=== PATIENT | male | born 1990 | race Caucasian/White ===

== ENCOUNTER 2017-12-29 15:29 | Emergency (ER) | payer MEDICAID ==
[2017-12-29 16:12] LABS: PLATELET COUNT 314 10^3/uL (150-400)
--- NOTE | 2017-12-29 16:13 | EDPHY ---
H & P Stated Complaint: M1 - Medical/Surgical History Hx Asthma: No Hx Chronic Respiratory Disease: No Hx Diabetes: No Hx Cardiac Disease: No Hx Renal Disease: No Hx Cirrhosis: No Hx Alcoholism: No Hx HIV/AIDS: No Hx Splenectomy or Spleen Trauma: No Other PMH: depression, denies others - Social History Smoking Status: Never smoked Alcohol Use: Heavy Time Seen by Provider: 12/29/17 15:34 HPI/ROS: CHIEF COMPLAINT: M1, alcohol intoxication HISTORY OF PRESENT ILLNESS: 27-year-old male with depression presents with alcohol intoxication. Today is the 1 year anniversary of his mother's suicide. He was quite depressed when he woke up this morning and began drinking an excessive amount of alcohol. Just prior to arrival, he became agitated and called the police because people were talking in his front yard. On police arrival, the patient was agitated and appeared to have visual hallucinations. They put him on an M1 hold. Denies SI/HI. REVIEW OF SYSTEMS: complete 10 point ROS negative except at noted in the HPI (Jayleen Garnett) - Physical Exam Exam: General Appearance: Alert, uncooperative, angry, appears intoxicated Eyes: Pupils equal and round, no conjunctival pallor or injection ENT, Mouth: Mucous membranes moist Neck: Normal inspection Respiratory: Lungs are clear to auscultation Cardiovascular: Regular rate and rhythm Gastrointestinal: Abdomen is soft and nontender Neurological: A&O, nonfocal exam Skin: Warm and dry Extremities: Normal inspection Psychiatric: Fluctuating affect (Jayleen Garnett) Constitutional: Initial Vital Signs Temperature (C) 36.6 C 12/29/17 15:51 Heart Rate 106 H 12/29/17 15:51 Respiratory Rate 18 12/29/17 15:51 Blood Pressure 166/78 H 12/29/17 15:51 O2 Sat (%) 94 12/29/17 15:51 O2 Delivery Mode Room Air O2 (L/minute) 36.9 Allergies/Adverse Reactions: nut - unspecified Allergy (Verified 12/29/17 15:51) Home Medications: Medication Instructions Recorded Gabapentin 12/29/17 Lexapro 12/29/17 Medical Decision Making ED Course/Re-evaluation: 1630: Pt quite agitated, Ativan 1mg orally given. 1705: Pt in argument with patient in adjacent room, uncooperative. Haldol 5mg IM given. (Jayleen Garnett) 0630: I did go and evaluate the patient he is now sober however appears to be going through withdrawal, he is not tachycardic however he is tremulous and sweaty, and IV will be established receive IV fluids and additionally 1 mg IV Ativan and placed on CIWA. Continue closely monitor. He still needs mental evaluation. Signed over at shift change to Dr. Guillaume. (Jacinto Lopez) Other Provider: Care assumed at 6:45 a.m. With plan for evaluation of this patient arrived depressed with suicidal ideation and alcohol intoxication. At 5:15 a.m. Breathalyzer is 0. 906: Patient had mental health evaluation and is the recommendation of the collection systems consultant and Dr. Lobito Sargent that the patient be discharged to the care of his father at noon, and the mental health hold is lifted by the home service consultant psychiatrist. (Jace Guillaume) - Data Points Laboratory Results: Laboratory Results 12/29/17 15:42 12/29/17 15:42 Medications Given: Discontinued Medications Haloperidol Lactate (Haldol Injection) 5 mg IM ONCE ONE Stop: 12/29/17 17:09 Last Admin: 12/29/17 17:10 Dose: 5 mg Sodium Chloride (Ns) 1,000 mls @ 0 mls/hr IV ONCE ONE PRN Reason: Wide Open Stop: 12/30/17 06:21 Last Admin: 12/30/17 06:26 Dose: 1,000 mls Lorazepam (Ativan) 1 mg PO EDNOW ONE Stop: 12/29/17 16:31 Last Admin: 12/29/17 16:37 Dose: 1 mg Lorazepam (Ativan Injection) 1 mg IVP EDNOW ONE Stop: 12/30/17 06:22 Last Admin: 12/30/17 06:22 Dose: 1 mg Departure - Departure Disposition: Home, Routine, Self-Care Clinical Impression: Suicidal ideation Alcoholic intoxication Qualifiers: Complication of substance-induced condition: uncomplicated Qualified Code(s): F10.920 - Alcohol use, unspecified with intoxication, uncomplicated Condition: Good Instructions: Alcohol Intoxication (ED), Suicide Prevention (ED) Referrals: [facility],. [Clinic] - As per Instructions
[2017-12-29] MEDS ORDERED: LORazepam 1 MG TAB PO ONE (16:30)
[2017-12-29] MEDS ORDERED: HALOPERIDOL LACT 5 MG/ML INJ ONE (16:45)
[2017-12-29] MEDS ORDERED: HALOPERIDOL LACT 5 MG/ML INJ IM ONE (17:08)
[2017-12-30] MEDS ORDERED: NS 1,000 ML IV ONE (06:20)
[2017-12-30] MEDS ORDERED: LORazepam 2 MG/ML INJ IVP ONE (06:21)
[2017-12-30] MEDS ORDERED: LORazepam 2 MG/ML INJ ONE (06:21)
[2017-12-30] MEDS ORDERED: chlordiazePOXIDE 25 MG CAP PO ONE (10:39)
[2017-12-30 11:02] VITALS: BP 124/78
--- NOTE | 2017-12-30 12:44 | ASMTTLCEVL ---
TLC Evaluation - Basic Information Evaluation Start Date and 12/30/2017 06:15 AM Time Hospital Status Answers: M1 Hold 72-hr M1 Hold Start Date 12/29/2017 03:00 PM and Time Patient statement Notes: I spoke with an officer about ongoing problems, so they called for an ambulance and brought me here. I wasnt feeling suicidal last night and do not feel suicidal now. I can ensure my own safety. Cookie been on a 6-day alcohol pope, drinking continuously throughout each day. My roommate who had been staying with me the past month decided to leave on Wednesday. Narrative Notes: Pt is a 27 yo, single, not employed, male, with past history of alcohol use disorder, severe; anxiety disorder NOS; and depression, moderate, brought to [facility] ED last night by [employer] on M1 hold which noted: Respondent flagged down [officer] with no shirt or shoes on. Respondent was telling illogical story about man outside his apartment that ran off when he spoke to them. Respondent stated mind was in bad place. Respondent would alternate between rapid illogical statements and clear thoughts. When asked if he wanted to go to hospital, he said yes. Respondent not in state of mind to care for himself. BAL upon arrival was .395 at 1542 hrs, UDS results were negative for all tested substances. Pt was agitated initially in the ED and was administered Ativan 1 mg po at 1637 hrs and Haldol 5 mg IM at 1710 hrs. He was also given Ativan 1 mg IVP at 0637 for diaphoresis and tremors. Pt reported that his mother committed suicide by hanging about a year ago. She had left wishes for pt to seek grief counseling, which pt did and started seeing psychiatrist, Dionicio Ferrara MD who then also referred pt to a counselor named Yani Lenz. Pt reported last seeing Dr. Ferrara about 2-3 weeks ago. He has been in counseling with Yani Lenz on a weekly basis, every afternoons at 2 pm. His next appointment with her is today at 2pm. Pt denied any past history of suicide attempts or psychiatric hospitalization. He went to alcohol rehab at [facility] in June 2016 and was there for 30 days. He reported he relapsed on alcohol 4 days after his release from there. Diagnosis History Notes: Alcohol use disorder, severe; anxiety disorder NOS; and depression, moderate Prior suicide attempts Notes: Pt denied any past history of suicide attempts. Prior hospitalizations Notes: Pt denied any past psychiatric hospitalizations. He went to alcohol rehab at [facility] in June 2016 and was there for 30 days. He reported he relapsed on alcohol 4 days after his release from there. Pt reported he was on Antabuse for 7 months up until stopping use 2 months ago. Treatment Responses Notes: Relapsed on alcohol 4 days after his release from [facility]. History of violence Notes: Pt denied any past history of violence. Therapist: Yani Lenz Psychiatrist: Dr. Luis Angel Ferrara Medications (name, dosage, route, freq uency) Notes: Lexapro 10 mg po daily; Gabapentin 300 mg po PRN for insomnia. Allergies/Reaction Notes: Pt reported having no known drug allergies but has allergy to tree nuts. Sleep Notes: Pt reported having sporadic sleep for the past 6 nights. Appetite Notes: Pt reported his appetite has been normal. Medical/Surgical history Notes: Significant only for episodic childhood asthma. Substance use history (frequency, intensity, his tory, duration) Notes: Pt reported having first tried alcohol at age 20 and became problematic about 2 years ago. Pt reported he has been drinking vodka continuously for the past 6 days. BAL was .398 upon arrival. Pt reported having first tried marijuana at age 19 but discontinued use around age [age] because it makes me anxious. UDS results were negative for all tested substances. Pt denied any history of other illicit substance use. Family composition Notes: Pts parents 2 years ago. Mother committed suicide by hanging herself about a year ago. Pt has a 25 yo brother. Need for family Answers: Yes participation in patient's care Family psychiatric/substance abuse history Notes: Pts brother has a history of alcohol dependence but has been sober now for 2 years. Mother reportedly had no prior psychiatric treatment history, however, committed suicide by hanging about a year ago. Developmental history Notes: Pt [place]. He moved to [place] at age 13. He appeared to have achieved normal childhood developmental milestones. He denied any childhood history of TBIs, LOC or concussions. Pt denied any childhood history of physical, emotional or sexual abuse/trauma. Abuse concerns Answers: None Marital status/children Notes: Pt is single, never , no dependents. Pt stated he allowed a girl to stay at his apartment with him for the past month. She moved out on Wednesday and told pt I never want to see you again because of pts drinking. Living situation Notes: Pt resides alone in his apartment in [place]. He has plans to move to another location soon, as he has a scholarship and acceptance into a Ph.D. program this fall at the [employer]. Sexual history/orientation Notes: Active. Heterosexual. Peer support/family strengths Notes: Pt stated Im kind of my own support system. My father knows Im here and is supportive. Education level/history Notes: Pt graduated from [employer] then obtained his bachelors degree in chemical engineering from in 2014. H has a scholarship and acceptance into a Ph.D. program this fall at the [employer]. Work history Notes: Pt is not currently working. Notes: None. Legal Notes: Pt denied any past history of arrests/legal problems. Advent/Spiritual Notes: None which would impact treatment. Leisure Notes: Pt stated he enjoys making music and being with his friends. Collateral Notes: Per father, David Mobley [phone] [facility] Evaluation - Mental Status Exam Appearance: Answers: Appropriate Clean Unkempt Eye Contact: Answers: Good/Direct Mood: Answers: Euthymic Affect: Answers: Calm Behavior: Answers: Appropriate Cooperative Fatigued Speech: Answers: Relevant Logical Clear Coherent Soft Thought Process: Answers: Organized Oriented Alert Goal Oriented Intact Insight: Answers: Good Judgement: Answers: Fair Depression Answers: Crying Spells Signs/Symptoms: Diminished Interest Diminished Pleasure Anxiety Signs/Symptoms Answers: Generalized Anxiety Hallucinations: Answers: None Current Stage of Change Answers: Preparation Relapse Pt reported to have Answers: No suicidal/self-injuring ideation/behavior? Pt reported to be making Answers: No suicidal/self-injuring threats? Pt reported to have Answers: No aggression/assault ideation/behavior? Pt reported to be making Answers: No aggression/assault threats? Pt exhibits inability to Answers: No care for self/grave disability? Ideation/behavior is Answers: No chronic? Patient has a specific Answers: No plan? Pt has access to means to Answers: No execute the plan? Ideation involves Answers: No serious/lethal intent? Ideation has Answers: No delusional/hallucinatory content? History of Answers: No suicidal/self-injuring ideation, behavior, or threats? History of Answers: No aggressive/assaultive ideation, behavior, or threats? History of serious Answers: No physical harm to self/others while in treatment setting? TLC Evaluation - Suicide/Homicide Risk Suicide Risk Factors: Answers: Alcohol/Heavy Drug Use Hx of Suicide Attempt by Family Member Impulsivity Inadequate Social Support Lack of Advent Support Single Homicide/violence risk Answers: None factors: Current Suicidal Answers: No Ideation? Current Suicidal Ideation Answers: No in the Past 48 Hours? Current Suicidal Ideation Answers: No in the Past Month? Current Suicidal Answers: No Ideation, Worst Ever? Suicide Internal Answers: Absence of Psychosis Protective Factors: [place]mina with Stress Suicide External Answers: Positive Therapeutic Protective Factors: Relationships Ranking of patient's Answers: Low suicidal risk: Ranking of patient's Answers: Low homicidal risk: TLC Evaluation - Wrap-up BDI Total Score: 16 BDI Question #2 Score: 2 BDI Question #9 Score: 0 BSS Total Score: 0 AXIS I Diagnosis (include DSM-V and ICD-10 codes), must also be entered in [employer], which is the source of truth. Notes: UNSPECIFIED ANXIETY DISORDER 300.00 (F41.9) MAJOR DEPRESSIVE DISORDER, RECURRENT, MILD 296.31 (F33.0) In consultation with [facility] ED physician, Jace Guillaume MD, and on-call psychiatrist, Lobito Sargent MD, both concurred that pt does not appear to meet 27-65 criteria requiring psychiatric hospitalization as pt does not appear to be an imminent risk of harm to self/others/gravely disabled due to a mental illness condition. Dr. Sargent provided telephone order read back vacating M1 hold at 1030 hrs when pts father will pick pt up from the ED. Evaluation End Date and 12/30/2017 09:00 AM Time (HH:VERN): Date Signed: 12/30/2017 12:43 PM Electronically Signed By:Babar Olmedo
--- NOTE | 2017-12-30 12:45 | ASMTTCLDSP ---
TLC Discharge Disposition Disposition: Answers: Discharge If Answers: Yes DISCHARGED: Patient/family given suicide hotline info & SAMHSA brochure? Disposition Notes: Notes: Pt stated commitment or ability to keep self safe, denied thoughts of self harm or harm to others. Pt reported planning to attend his standing therapist appointment with Yani Lenz today at 2 pm. Pts father stated he will ensure pt makes that appointment today. Pt was given local hotline information and SAMHSA brochure After an Attempt. Discharge Concerns/Recommendations: Notes: In consultation with [facility] ED physician, Jace Guillaume MD, and on-call psychiatrist, Lobito Sargent MD, both concurred that pt does not appear to meet 27-65 criteria requiring psychiatric hospitalization as pt does not appear to be an imminent risk of harm to self/others/gravely disabled due to a mental illness condition. Dr. Sargent provided telephone order read back vacating M1 hold at 1030 hrs when pts father will pick pt up from the ED. Was patient given the Answers: Not applicable Inpatient Behavioral Health Prohibited Belongings List while in the ED? Psychiatrist vacating M1 Lobito Sargent MD Hold: Date and time M1 hold 12/30/2017 10:30 AM vacated (time format is hh:mm): Type of Hold: Answers: M1/72-hour Hold Hold initiated by: Answers: Police Date Signed: 12/30/2017 12:45 PM Electronically Signed By:Babar Olmedo
== END 2017-12-30 10:59 | disposition home or self-care (01) ==
DX: R45.851 Suicidal ideations (principal); F10.920 Alcohol use, unspecified with intoxication, uncomplicated
CPT/HCPCS: 80305; 96374; G0480; J1630; J2060